=== PATIENT | female | born 1990 | race Caucasian/White ===

== ENCOUNTER 2016-12-16 10:27 | Emergency (ER) | payer MEDICAID ==
[~2016-12-16] VITALS: Ht 160 cm; Wt 72.6 kg
[2016-12-16 10:40] VITALS: BP 123/75
--- NOTE | 2016-12-16 10:47 | NUR ---
Dr. Conrad evaluating patient at bedside.
--- NOTE | 2016-12-16 10:47 | NUR ---
Patient ambulated to bed 7. RN evaluating patient at bedside.
--- NOTE | 2016-12-16 10:50 | NUR ---
26F BIB SELF C/O BODY ACHES, SHARP, 8/10 X 3 MONTHS; PT C/O NAUSEA, BUT STATES NO VOMITING OR DIARRHEA AT THIS TIME; ABDOMEN SOFT, NON-TENDER, ACTIVE BOWEL SOUNDS X 4 QUADRANTS; PT AA&OX4, PERRLA, BL LUNG SOUNDS CLEAR, RR EVEN/UNLABORED, SKIN IS WARM/DRY/INTACT AT THIS TIME; STEADY GAIT; PT RESTING IN BED WITH HOB ELEVATED AND IN LOWEST POSITION; POSITIONED FOR COMFORT; ER MD MADE AWARE OF STATUS. WILL CONTINUE TO MONITOR.
--- NOTE | 2016-12-16 11:26 | NUR ---
ER MD DR. WARREN EVALUATING PT AT BEDSIDE.
[2016-12-16 11:56] VITALS: BP 112/68
--- NOTE | 2016-12-16 11:56 | NUR ---
Patient discharged with v/s stable. Written and verbal after care instructions given and explained. Patient alert, oriented and verbalized understanding of instructions. Ambulatory with to car. All questions addressed prior to discharge. ID band removed. Patient advised to follow up with PMD. Rx of CEPHALEXIN 500MG CAP & NAPROSYN 375MG TAB given. Patient educated on indication of medication including possible reaction and side effects. Opportunity to ask questions provided and answered.
== END 2016-12-16 11:56 | disposition home or self-care (01) ==
LOC: MED 10:27
DX: M25.512 Pain in left shoulder (principal); M25.511 Pain in right shoulder; N39.0 Urinary tract infection, site not specified
CPT/HCPCS: 81002; 81025; 99283